=== PATIENT | female | born 1985 | race Caucasian/White ===

== ENCOUNTER 2023-08-04 16:33 | Emergency (ER) | payer BC, SELFPAY ==
[2023-08-04 16:47] VITALS: BP 108/69; PULSE 90; RESP 16; TEMP 36.6; O2SAT 99
--- NOTE | 2023-08-04 16:57 | ED.URI ---
HPI - URI/Sore Throat General Chief Complaint: Upper Respiratory Infection Stated Complaint: SORE THROAT/CONGESTION Time Seen by Provider: 08/04/23 16:46 Source: patient and RN notes reviewed Mode of arrival: ambulatory Limitations: no limitations History of Present Illness HPI Narrative: Patient presents today complaining of 4 day history of sore throat, congestion, and mild cough. Denies fever, shortness of breath, chest pain, or any additional symptoms. Currently rates her pain 4/10 and has been taking Tylenol and ibuprofen with some relief. Reports 2 children sick at home with COVID and RSV. Related Data Home Medications Medication Instructions Recorded Confirmed Lactobacillus 1 cap PO DAILY 08/04/23 08/04/23 acidophilus-Bifidobac.animalis 2.5 billion cell capsule (Daily Probiotic) cetirizine 10 mg tablet (Zyrtec) 10 mg PO DAILY 08/04/23 08/04/23 multivitamin 1 tablet PO DAILY 08/04/23 08/04/23 semaglutide (weight loss) 2.4 2.4 mg subcut WEEKLY 08/04/23 08/04/23 mg/0.75 mL subcutaneous pen injector (Wegovy) Allergies Allergy/AdvReac Type Severity Reaction Status Date / Time amoxicillin Allergy Chest Pain Verified 08/04/23 16:56 Review of Systems Review of Systems: CONSTITUTIONAL: Denies body aches, fever, chills, or sweats. EYES: Denies visual changes, redness, or discharge. ENT: Denies rhinorrhea, or otalgia.+ sore throat, congestion CARDIOVASCULAR: Denies chest pain, palpitations, or edema. RESPIRATORY: Denies dyspnea.+ mild cough GASTROINTESTINAL: Denies abdominal pain, nausea, vomiting, or diarrhea. GENITOURINARY: Denies dysuria or hematuria. SKIN: Denies rash, itching, or wounds. MUSCULOSKELETAL: Denies back pain, joint pain, or myalgia. NEUROLOGIC: Denies headache, numbness, tingling, or weakness. PSYCH: Denies depression or anxiety. PMFSH Comments At time of signature, I have reviewed and agree with nursing past medical, surgical, social and family history unless otherwise noted. Please see nursing chart for further information. There is no relevant family history pertinent to the presenting complaint Exam Narrative: GENERAL: Well-appearing, well-nourished, and in no acute distress. HEAD: Normocephalic, atraumatic. EYES: EOMI. No redness or drainage. Conjunctivae normal. ENT: Mucous membranes pink and moist. Nares clear. No rhinorrhea. TMs normal bilaterally. Throat mildly erythematous without edema or exudate. Uvula midline. NECK: Normal AROM. Supple. No lymphadenopathy. CHEST: No respiratory distress. Clear to auscultation. HEART: Regular rate and rhythm. No murmur appreciated. EXTREMITIES: Normal range of motion. No edema. SKIN: Warm, dry, no rash. Capillary refill normal. Normal skin turgor. NEURO: No focal deficits. Alert and oriented x3. Gait steady. PSYCH: Normal affect. No signs of depression or anxiety. Course Course Level of Care: Express Care Visit Vital Signs Vital signs: Vital Signs Temperature 97.8 F 08/04/23 16:47 Pulse Rate 90 08/04/23 16:47 Respiratory Rate 16 08/04/23 16:47 Blood Pressure 108/69 08/04/23 16:47 Pulse Oximetry 99 08/04/23 16:47 Temperature 97.8 F 08/04/23 16:47 Pulse Rate 90 08/04/23 16:47 Respiratory Rate 16 08/04/23 16:47 Blood Pressure 108/69 08/04/23 16:47 Pulse Oximetry 99 08/04/23 16:47 Reviewed MDM - URI/Sore Throat MDM Narrative Medical decision making narrative: Rapid strep negative. Culture pending. Patient declines testing for COVID-19. Discussed [id number] treatment and duration of illness. Anticipatory guidance given. Differential Diagnosis Differential diagnosis: Likely upper respiratory infection, viral infection, pharyngitis and other (Strep throat, COVID-19, RSV) Lab Data Attestation: I reviewed the patient's lab results. Labs: Strep Screen Presumptive Negative *(Reference Range: Negative)*
== END 2023-08-04 17:01 | disposition home or self-care (01) ==
PROVIDERS: Emergency Provider Nurse Practitioner
DX: J02.9 Acute pharyngitis, unspecified (principal); Z20.822 Contact with and (suspected) exposure to COVID-19
CPT/HCPCS: 87081; 87880; 99213; G0463

== ENCOUNTER 2025-04-18 17:17 | Emergency (ER) | payer BC, SELFPAY ==
[2025-04-18 17:29] VITALS: BP 110/67; PULSE 80; RESP 16; TEMP 36.4; O2SAT 99
[2025-04-18 17:36] LABS: BEDSIDEPREGUCG Negative (Negative); EDUAAPPEAR Clear; EDUABILI Negative (Negative); EDUABLOOD 1+ (Negative); EDUACOLOR1 Yellow; EDUAGLUCOSE Negative (Negative); EDUAKETONE Negative (Negative); EDUALEUKO Negative (Negative); EDUANITRATE Negative (Negative); EDUAPH 6.5; EDUAPROTEIN Negative (Negative); EDUASPGRAVITY 1.010; EDUAUROBILI 0.2
[2025-04-18 17:40] LABS: EDSTREPNEGPOS1 Negative (Negative)
--- NOTE | 2025-04-18 17:58 | ED.FEMALEGU ---
HPI - Female Genitourinary General Chief complaint: Urogenital-Female Stated complaint: UTI symptoms Time Seen by Provider: 04/18/25 17:35 Source: patient and RN notes reviewed Mode of arrival: ambulatory Limitations: no limitations History of Present Illness HPI Narrative: 40-year-old female presents Express Care complaining of urinary symptoms for to days. Patient reports having suprapubic tenderness, increased frequency, hematuria, foul-smelling urine, chills, nausea, and hesitancy. Patient denies any fevers, body aches, vomiting, diarrhea, vaginal discharge, pelvic pain, vaginal bleeding, or any concerns for STIs. Patient also reports she is not sure she is getting upper respiratory infection, she reports sore throat mild congestion that is or any improved. Patient denies any other upper respiratory symptoms, cough, chest pain, difficulty breathing, or shortness of breath. Patient has not taken anything [id number] for symptoms. Patient denies any significant past medical history. Related Data Home Medications ?Medication ?Instructions ?Recorded ?Confirmed ?Last Taken ?Type Lactobacillus 1 cap PO DAILY 08/04/23 08/04/23 Unknown History acidophilus-Bifidobac.animalis 2.5 billion cell capsule (Daily Probiotic) cetirizine 10 mg tablet (Zyrtec) 10 mg PO DAILY 08/04/23 04/18/25 Unknown History multivitamin 1 tablet PO DAILY 08/04/23 04/18/25 Unknown History semaglutide (weight loss) 2.4 2.4 mg subcut WEEKLY 08/04/23 08/04/23 Unknown History mg/0.75 mL subcutaneous pen injector (Wegovy) Allergies Allergy/AdvReac Type Severity Reaction Status Date / Time amoxicillin Allergy Chest Pain Verified 04/18/25 17:28 Review of Systems Review of Systems: CONSTITUTIONAL: Denies fever, body aches, or sweats. Positive for chills. EYES: Denies visual changes, redness, or discharge. ENT: Denies rhinorrhea, or otalgia. Positive for sore throat and congestion. CARDIOVASCULAR: Denies chest pain, palpitations, or edema. RESPIRATORY: Denies cough or dyspnea. GASTROINTESTINAL: Denies abdominal pain, vomiting, or diarrhea. Positive for nausea. GENITOURINARY: Positive for suprapubic tenderness, foul-smelling urine, hesitancy, increased frequency, hematuria. Negative for pelvic pain, vaginal bleeding, vaginal discharge SKIN: Denies rash or itching. MUSCULOSKELETAL: Denies back pain, cough flank pain, joint pain, or myalgia. NEUROLOGIC: Denies headache, numbness, or weakness. PSYCHIATRIC: Denies anxiety or depression. All other systems reviewed are negative, except as documented in HPI. PMFSH Comments At the time of my signature, I reviewed and agree with the nursing past medical, surgical, social, and family history. There is no relevant family history pertinent to the patient complaint. Exam Narrative: GENERAL: This is a well-nourished, well-developed adult, in no apparent distress. They are non ill-appearing, nontoxic appearing. HEAD: normocephalic, atraumatic. EYES: Sclera clear/white. Vision is grossly intact. Conjunctiva normal bilaterally. Extraocular movements intact. EARS: External ears normal,Hearing grossly intact. NOSE: External nose normal. Nasal turbinates pink without redness or swelling, no exudate, no rhinorrhea. THROAT: Mucous membranes moist. Posterior pharynx pink with postnasal drip, no erythema or swelling, no exudate or ulceration. Uvula midline. NECK: Normal range of motion. Neck is supple. Nontender without lymphadenopathy, masses, or thyromegaly. CARDIOVASCULAR: Regular rate and rhythm. Normal S1-S2. No clicks, gallops, rubs, murmurs. RESPIRATORY: Respiratory rate normal, respiratory effort nonlabored, no respiratory distress. Lung sounds clear to auscultation throughout. Lung sounds equal bilaterally. No adventitious lung sounds. GASTROINTESTINAL: Abdomen soft, flat, mild suprapubic tenderness to palpation, nondistended. Bowel sounds are active. No hepato-splenomegaly, or palpable masses. No guarding or rigidity. No rebound tenderness. SKIN: warm, Dry, intact with no suspicious lesions or rash, good texture and turgor. NEURO: awake, alert, and oriented to person, place and time. There were no obvious focal neurologic abnormalities. EXTREMITIES: No joint tenderness, effusion, or edema noted. BACK: Nontender without deformity. No CVA tenderness. Course Course Emergency Course: Portions of this record may have been created with voice recognition software Level of Care: Express Care Visit Vital Signs Vital signs: Vital Signs Temperature 97.6 F 04/18/25 17:29 Pulse Rate 80 04/18/25 17:29 Respiratory Rate 16 04/18/25 17:29 Blood Pressure 110/67 04/18/25 17:29 Pulse Oximetry 99 04/18/25 17:29 Temperature 97.6 F 04/18/25 17:29 Pulse Rate 80 04/18/25 17:29 Respiratory Rate 16 04/18/25 17:29 Blood Pressure 110/67 04/18/25 17:29 Pulse Oximetry 99 04/18/25 17:29 MDM - Female Genitourinary MDM Narrative Medical decision making narrative: Urine dipstick shows 1+ blood. Urine culture pending. Urine test negative. Rapid strep negative. Throat culture pending. Patient may have the start of than upper respiratory infection or might be related to allergies. Patient's is upper respiratory symptoms already improving. Patient's symptoms concerning for urinary tract infection. Through shared decision making with patient discussed starting antibiotic therapy your awaiting culture results, she would like to go ahead and start antibiotic therapy for urinary tract infection. Prescription of Bactrim sent to patient's pharmacy. Discussed physical exam findings. Advised supportive measures and signs/symptoms to go to the ER. Pt is appropriate for outpt treatment and f/u. Differential Diagnosis Differential diagnosis: Likely urinary tract infection, cystitis and other (Pyelonephritis, upper respiratory infection, strep throat, viral illness, hay fever) Lab Data Attestation: I reviewed the patient's lab results. Labs: Lab Results 04/18/25 04/18/25 Range/Units 17:34 17:38 POC Urine Color Yellow POC Urine Clarity Clear POC Urine pH 6.5 POC Ur Specif [place] 1.010 POC Urine Protein Negative (Negative) POC Ur Glucose (UA) Negative (Negative) POC Urine Ketones Negative (Negative) POC Urine Blood 1+ (Negative) POC Urine Nitrite Negative (Negative) POC Urine Bilirubin Negative (Negative) POC Urine Urobilinogen 0.2 POC U Leukocyte Esteras Negative (Negative) POC Urine HCG, Qual Negative (Negative) POC Grp A Strep Screen Negative (Negative) Discharge Plan Discharge Clinical Impression: Urinary tract infection Qualifiers: Urinary tract infection type: site unspecified Hematuria presence: with hematuria Qualified Code(s): N39.0 - Urinary tract infection, site not specified Patient Disposition: Home Condition: Stable Instructions: Antibiotic Form, Urinary Tract Infection in Women (ED) Additional Instructions: Your rapid strep is negative. A throat culture will be sent off and if it is positive for strep you will be contacted started on appropriate antibiotics. test is negative today. It is likely you have a urinary tract infection. Take the antibiotic as prescribed The urine will be sent of for a culture to identify what type of bacteria is causing your infection. If the culture shows that the antibiotic will not get rid of your infection, you will be notified and a new antibiotic will be called in for you. Increase water intake you will need to follow up with your PCP 3-5 days. Go to the ER for any worsening symptoms, abdominal pain, fevers, nausea, vomiting, or any other concerns Patient Language: Slovenian Prescriptions: New sulfamethoxazole-trimethoprim [Bactrim DS] 800-160 mg tablet 1 tablet PO Q12H 5 Days Qty: 10 0RF No Action Wegovy 2.4 mg/0.75 mL pen injector 2.4 mg SUBCUT WEEKLY multivitamin [Daily Multivitamin] Tablet 1 tablet PO DAILY cetirizine [Zyrtec] 10 mg Tablet 10 mg PO DAILY Daily Probiotic 2.5 billion cell Capsule 1 cap PO DAILY Follow-up/Referrals: UNKNOWN,DOCTOR [Primary Care Provider] Time of Disposition: 17:54
== END 2025-04-18 18:00 | disposition home or self-care (01) ==
DX: N39.0 Urinary tract infection, site not specified (principal)
CPT/HCPCS: 81003; 81025; 87081; 87086; 87880; 99213; G0463